=== PATIENT | female | born 1965 | race Caucasian/White ===

== ENCOUNTER → 2017-08-12 | Outpatient (CLI) | payer MEDICAID ==
[2017-08-12 08:41] LABS: Basophils # (A) 0.1 k/uL (0-0.2); Basophils % (A) 1 %; Eosinophils # (A) 0.2 k/uL (0-0.7); Eosinophils % (A) 2 %; HCT 44.2 % (34.0-46.0); HGB 14.1 gm/dL (11.4-16.0); Lymphocytes # (A) 1.8 k/uL (1.0-4.8); Lymphocytes % (A) 20 %; MCH 28.2 pg (25.0-35.0); MCHC 31.9 g/dL (31.0-37.0); MCV 88.4 fL (80.0-100.0); Mean Platelet Volume 7.5; Monocytes # (A) 0.5 k/uL (0-1.0); Monocytes % (A) 6 %; Neutrophils # (A) 6.1 k/uL (1.3-7.7); Neutrophils % (A) 69 %; Platelet Count 257 k/uL (150-450); RBC 4.99 m/uL (3.80-5.40); RDW 14.8 % (11.5-15.5); WBC 8.8 k/uL (3.8-10.6)
[2017-08-12 08:54] LABS: Potassium 4.7 mmol/L (3.5-5.1)
== END | disposition home or self-care (01) ==
LOC: LABPAT 08:02
PROVIDERS: ATTEND Orthopaedic Surgery
DX: Z01.818 Encounter for other preprocedural examination (principal); Z01.812 Encounter for preprocedural laboratory examination; M23.92 Unspecified internal derangement of left knee
CPT/HCPCS: 36415; 80051; 85025; 93005

== ENCOUNTER 2017-08-17 09:29 | Day surgery (SDC) | payer MEDICAID ==
[2017-08-10 23:05] VITALS: BMI 49.4
--- NOTE | 2017-08-16 11:29 | HP ---
HISTORY AND PHYSICAL Surgery is 08/17/2017. Noreen Hebert is a 52-year-old patient seen with progressive right knee pain. We discussed treatment options. She elected to proceed with right knee arthroscopy. Consent regarding the procedure was obtained. PAST MEDICAL HISTORY: Noncontributory. PAST SURGICAL HISTORY: section, cholecystectomy, hysterectomy, tonsillectomy. DAILY MEDICATIONS: Aleve as needed. ALLERGIES: None reported. SOCIAL HISTORY: Patient denies tobacco use. PHYSICAL EVALUATION: Right knee range of motion 0 to 125 degrees. Tenderness, medial joint line. Positive medial Ramirez's. Ligaments stable. Hip rotation without pain. Distal neurovascular exam is intact. Right knee radiographs revealed mild osteoarthritis. An MRI of the right knee revealed chondromalacia of the medial compartment, patella joint effusion and osteoarthritic changes. IMPRESSION: Internal derangement right knee with osteochondral tear versus meniscal tear. PLAN: Right knee arthroscopy with chondroplasty versus partial meniscectomy and debridement. MMODL / IJN: [id number] /
[~2017-08-17 09:29] MED LIST: DEXAMETHASONE SOD PHOSPHATE 10 MG/ML 1 ML VIAL IV ONE; HYDROmorphone 0.5 MG/0.5 ML SYRINGE IVP PRN; LACTATED RINGERS 1,000 ML IV SCH; ONDANSETRON 4 MG/2 ML VIAL IVP ONE
[2017-08-17] MEDS ORDERED: LIDOCAINE 1% 20 ML VIAL (10MG/ML) FOR IV START INTRADERMA ONE (10:31)
[2017-08-17] MEDS ORDERED: MIDAZOLAM 2 MG/2 ML VIAL ONE (10:56)
[2017-08-17] MEDS ORDERED: KETOROLAC 30 MG/ML 1 ML VIAL ONE (10:56)
[2017-08-17] MEDS ORDERED: BUPIVACAINE (PF) 0.25% 30 ML VIAL INTRAARTIC ONE (10:56)
[2017-08-17] MEDS ORDERED: SUCCINYLCHOLINE CHLORIDE 100 MG/5 ML SYR IV ONE (10:56)
[2017-08-17] MEDS ORDERED: LIDOCAINE 1% INJ 10MG/ML (20 ML MDV) ONE (10:56)
[2017-08-17] MEDS ORDERED: PROPOFOL 10 MG/ML 20 ML VIAL IV ONE (10:56)
[2017-08-17] MEDS ORDERED: fentaNYL (PF) 50 MCG/ML 2 ML AMP ONE (10:56)
[2017-08-17] MEDS ORDERED: HYDROmorphone (PF) 1 MG/ML ONE (10:56)
[2017-08-17 11:51] VITALS: RESP 16; TEMP 98
--- NOTE | 2017-08-17 11:54 | P.OP ---
Date of Procedure: 08/17/17 Preoperative Diagnosis: Internal derangement right knee Postoperative Diagnosis: 1. Tear medial and lateral meniscus right knee 2. Grade 4 chondromalacia medial femoral condyle right knee 3. Grade 3 chondromalacia patella right knee 4. Reactive synovitis medial and suprapatellar compartments right knee Procedure(s) Performed: 1. Arthroscopic partial medial and lateral meniscectomy right knee 2. Arthroscopic chondroplasty medial femoral condyle right knee 3. Arthroscopic microfracture medial femoral condyle right knee 4. Arthroscopic chondroplasty patella right knee 5. Arthroscopic partial synovectomy medial and suprapatellar compartments right knee Anesthesia: ERIN, local Surgeon: Bryan Pepper Estimated Blood Loss (ml): 10 Pathology: none sent Condition: stable Disposition: PACU Indications for Procedure: 52-year-old patient seen with progressive right knee pain. After treatment options were discussed, she elected to proceed with arthroscopy. Operative Findings: See description of procedure Description of Procedure: Patient was taken to the operative suite. Patient underwent a general anesthetic by the department of anesthesia. Patient was given preoperative antibiotics. The right lower extremity was placed in a well-padded arthroscopic leg troncoso. The right leg was prepped and draped in the normal sterile orthopedic fashion. A lateral parapatellar and suprapatellar incision was made. Trochars were inserted. Arthroscopy was initiated. Suprapatellar pouch revealed diffuse thick reactive synovitis.. The patellofemoral joint appeared to articulate congruently.. There was grade 3 chondromalacia of the patella with osteochondral tears as well as grade 3 chondromalacia of the femoral sulcus with osteochondral tears. The scope was guided into the medial gutter. No loose bodies or plica were identified. The scope was then guided into the medial compartment. A medial parapatellar incision was made. Trocar inserted followed by probe. There was a complex tear involving the posterior horn of the medial meniscus. There were grade 4 chondromalacia changes of the medial femoral condyle with diffuse osteochondral tearing present. There was reactive synovitis anteriorly. There were grade 2/3 chondromalacia changes of the medial tibial plateau present. No loose bodies. I performed a partial medial meniscectomy down to stable tissue. I performed a chondroplasty of the medial femoral condyle and tibial plateau down to stable tissue. I performed a partial synovectomy. The residual meniscus was probed and found to be stable. There was an area of exposed bone weightbearing surface medial femoral condyle. I performed a microfracture. The peripheral area was debrided with a motorized shaver. The residual area was stable. Scope and probe were then guided into the intercondylar notch. Cruciates were identified, probed and found to be stable. The scope and probe were then guided into lateral compartment. There were superficial tears involving the mid body and posterior horn of the lateral meniscus. There were grade 1 chondromalacia changes of lateral compartment. No loose bodies. I performed a partial lateral meniscectomy down to stable tissue. The residual meniscus was probed and found to be stable. The scope was in guided back into the suprapatellar compartment. I introduced a motorized shaver into the super patellar compartment. I debrided some piecemeal fragments of meniscus. I performed a chondroplasty of the patella down to stable tissue. I performed a partial synovectomy. The residual osteochondral surface of the patella was probed and found to be stable. The shaver was removed. I took one more look around the entire knee, no residual debris. Instruments were now removed from the joint. The joint was infiltrated with .25% Marcaine. Steri-Strips were applied to the portal sites. Sterile dressings were applied. The patient was placed into a TIANNA hose. No tourniquet was utilized. The patient was awakened, transferred to a bed and taken to recovery stable satisfactory condition.
[2017-08-17 14:59] VITALS: BP 140/86; PULSE 81
== END 2017-08-17 15:32 | disposition home or self-care (01) ==
LOC: OR 09:29
PROVIDERS: ATTEND Orthopaedic Surgery
DX: S83.241A Other tear of medial meniscus, current injury, right knee, initial encounter (principal); S83.281A Other tear of lateral meniscus, current injury, right knee, initial encounter; X58.XXXA Exposure to other specified factors, initial encounter; M94.261 Chondromalacia, right knee; M65.861 Other synovitis and tenosynovitis, right lower leg
CPT/HCPCS: 29880; J2250; J1100; J0690; J2405; J2001; J3010; J1885; J1170; J0330; J2704

== ENCOUNTER → 2017-11-01 | Outpatient (CLI) | payer MEDICAID ==
--- NOTE | 2017-11-02 08:30 | MM ---
Reason for exam: screening (asymptomatic). Last mammogram was performed 1 year and 8 months ago. History: Patient is postmenopausal. Physical Findings: A clinical breast exam by your physician is recommended on an annual basis and results should be correlated with mammographic findings. MG 3D Screening Mammo W/Cad Bilateral CC and MLO view(s) were taken. Prior study comparison: March 08, 2016, bilateral MG 3d screening mammo w/cad. September 06, 2014, bilateral MG screening mammo w CAD. There are scattered fibroglandular densities. Stable benign calcifications. There is no discrete abnormality. No significant changes when compared with prior studies. ASSESSMENT: Benign, BI-RAD 2 RECOMMENDATION: Routine screening mammogram of both breasts in 1 year.
== END | disposition home or self-care (01) ==
LOC: RADMAMWWP 07:51
PROVIDERS: ATTEND Family Medicine
DX: Z12.31 Encounter for screening mammogram for malignant neoplasm of breast (principal)
CPT/HCPCS: 77063; 77067

== ENCOUNTER → 2017-12-13 | Outpatient (CLI) | payer MEDICAID ==
--- NOTE | 2017-12-13 18:44 | CT ---
EXAMINATION TYPE: CT sinus wo con DATE OF EXAM: 12/13/2017 COMPARISON: NONE HISTORY: Patient complains of recurrent sinus infections that unresponsive to treatment. CT DLP: 547 mGycm. Automated Exposure Control for Dose Reduction was Utilized. TECHNIQUE: CT scan of the sinuses is performed without contrast, axial images are obtained, coronal r eformatted images are also reviewed. FINDINGS: Orbital margins are intact. There is no evidence of blowout fracture. Maxilla is intact. Zy gomatic arches appear normal. There is fairly normal development and aeration of the paranasal sinuse s. There is bilateral patency of the ostiomeatal complex. I see no bony destructive process. There is no evidence of orbital mass. Visualized temporal bones appear normal. CONCLUSION: Negative CT scan of the paranasal sinuses.
== END | disposition home or self-care (01) ==
LOC: RADCTMAIN 18:07
PROVIDERS: ATTEND Otolaryngology
DX: J32.9 Chronic sinusitis, unspecified (principal)
CPT/HCPCS: 70486

== ENCOUNTER → 2018-04-12 | Outpatient (CLI) | payer MEDICAID ==
[2018-04-12 11:41] LABS: HCT 42.7 % (34.0-46.0); HGB 14.2 gm/dL (11.4-16.0); MCH 28.4 pg (25.0-35.0); MCHC 33.3 g/dL (31.0-37.0); MCV 85.3 fL (80.0-100.0); Mean Platelet Volume 7.2; Platelet Count 272 k/uL (150-450); RDW 13.9 % (11.5-15.5); WBC 8.3 k/uL (3.8-10.6)
[2018-04-12 12:00] LABS: Appearance,Urine Cloudy (Clear); Bacteria,Urine Occasional /hpf; Bilirubin,Urine Negative (Negative); Blood,Urine Negative (Negative); Color,Urine Yellow; Glucose,Urine (UA) Negative (Negative); Ketones,Urine Negative (Negative); Leukocyte Esterase,Urine Negative (Negative); Mucus,Urine Rare /hpf; Nitrite,Urine Negative (Negative); PH, Urine 5.5 (5.0-8.0); Protein,Urine Negative (Negative); Specific Gravity,Urine 1.013 (1.001-1.035); Squamous Epithelial Cell,Urine 2 /hpf (0-4); Urobilinogen,Urine <2.0 mg/dL (<2.0); WBC,Urine 5 /hpf (0-5)
[2018-04-12 12:16] LABS: ALT 51 U/L (9-52); AST 38 U/L (14-36); Albumin 4.2 g/dL (3.5-5.0); Alkaline Phosphatase 62 U/L (38-126); Anion Gap 8 mmol/L; Blood Urea Nitrogen 12 mg/dL (7-17); Calcium 9.8 mg/dL (8.4-10.2); Carbon Dioxide 28 mmol/L (22-30); Chloride 104 mmol/L (98-107); Cholesterol 192 mg/dL (<200); Glucose 105 mg/dL (74-99); HDL Cholesterol 34 mg/dL (40-60); LDL Cholesterol,Calculated 96 mg/dL (0-99); Sodium 140 mmol/L (137-145); Total Bilirubin 0.6 mg/dL (0.2-1.3); Total Protein 7.4 g/dL (6.3-8.2); Triglycerides 311 mg/dL (<150)
== END | disposition home or self-care (01) ==
LOC: LABWHC1 10:33
PROVIDERS: ATTEND Family Medicine
DX: Z00.00 Encounter for general adult medical examination without abnormal findings (principal)
CPT/HCPCS: 36415; 80053; 80061; 81001; 85027

== ENCOUNTER 2019-10-13 19:30 | Emergency (ER) | payer MEDICAID ==
[2019-10-13] MEDS ORDERED: METOCLOPRAMIDE 5 MG/ML 2 ML VIAL IVP STA (19:45)
[2019-10-13] MEDS ORDERED: MECLIZINE 12.5 MG TAB PO STA ×2 (19:45→21:07)
--- NOTE | 2019-10-13 19:49 | ED ---
General Adult HPI - General Source: patient, family, EMS, RN notes reviewed Mode of arrival: EMS Limitations: no limitations <Fish Lainez - Last Filed: 10/13/19 20:51> <Glen Case - Last Filed: 10/13/19 23:30> - General Stated complaint: Vomiting Time Seen by Provider: 10/13/19 19:37 - History of Present Illness Initial comments: Patient is a pleasant 54-year-old female presenting to the emergency department with dizziness. Onset of symptoms was sudden just prior to arrival. Patient was at a restaurant and just starting to eat. Patient suddenly became very dizzy and the room was spinning. Patient did fall and did strike her head. Unclear if patient may have loss consciousness for less than a second. Patient does complain of moderate discomfort on the side of her head where she struck it. Otherwise no headache. No weakness. No speech problems. No paresthesia. No confusion. Patient does have nausea and has vomited several times. No history of similar symptoms previously. (Fish Lainez) - Related Data Previous Rx's Medication Instructions Recorded Hydrocodone/Acetaminophen [[place] 1 each PO Q6HR PRN #20 tab 08/17/17 5-325] Meclizine [Antivert] 25 mg PO TID PRN #15 tab 10/13/19 Ondansetron Odt [Zofran ODT] 4 mg PO Q8HR PRN #10 tab 10/13/19 Allergies Allergy/AdvReac Type Severity Reaction Status Date / Time No Known Allergies Allergy Verified 08/17/17 10:09 Review of Systems ROS Other: All systems not noted in ROS Statement are negative. Constitutional: Denies: fever Eyes: Denies: eye pain ENT: Denies: ear pain Respiratory: Denies: cough Cardiovascular: Denies: chest pain Endocrine: Denies: fatigue Gastrointestinal: Denies: abdominal pain Genitourinary: Denies: dysuria Musculoskeletal: Denies: back pain Skin: Denies: rash Neurological: Reports: as per HPI, vertigo. Denies: weakness, numbness, paresthesias, confusion <Fish Lainez - Last Filed: 10/13/19 20:51> ROS Other: All systems not noted in ROS Statement are negative. <Glen Case - Last Filed: 10/13/19 23:30> ROS Statement: Those systems with pertinent positive or pertinent negative responses have been documented in the HPI. Past Medical History Additional Past Medical History / Comment(s): hx. colon polyps, History of Any Multi-Drug Resistant Organisms: None Reported Past Surgical History: Section, Cholecystectomy, Hysterectomy, Tonsillectomy Additional Past Surgical History / Comment(s): pilinoidal cyst removed Past Anesthesia/Blood Transfusion Reactions: Previous Problems w/ Anesthesia Additional Past Anesthesia/Blood Transfusion Reaction / Comment(s): states "hard to wake up" Smoking Status: Never smoker - Past Family History Father Family Medical History: Cancer Additional Family Medical History / Comment(s): thyroid <Fish Lainez - Last Filed: 10/13/19 20:51> General Exam Limitations: no limitations General appearance: alert, in no apparent distress Head exam: Present: atraumatic, normocephalic Eye exam: Present: normal appearance, PERRL, EOMI. Absent: nystagmus ENT exam: Present: normal oropharynx Neck exam: Present: normal inspection Respiratory exam: Present: normal lung sounds bilaterally Cardiovascular Exam: Present: regular rate, normal rhythm GI/Abdominal exam: Present: soft. Absent: tenderness Extremities exam: Present: normal inspection Neurological exam: Present: alert, oriented X3, CN II-XII intact. Absent: motor sensory deficit Expanded Neurological exam: Present: protecting the airway Patient oriented to: Present: person, place, time Speech: Present: fluid speech Cranial nerves: EOM's Intact: Normal, Facial Sensation: Normal Sensory exam: Upper Extremity Light Touch: Normal, Lower Extremity Light Touch: Normal Motor strength exam: RUE: 5, LUE: 5, RLE: 5, LLE: 5 Eye Response: (4) open spontaneously Motor Response: (6) obeys commands Verbal Response: (5) oriented Psychiatric exam: Present: normal affect, normal mood Skin exam: Present: normal color <Fish Lainez Last Filed: 10/13/19 20:51> Course Vital Signs 10/13/19 10/13/19 19:51 22:41 Temperature 98.3 F Pulse Rate 92 82 Respiratory 19 17 Rate Blood Pressure 155/92 132/87 O2 Sat by Pulse 96 97 Oximetry EKG Findings - EKG Comments: EKG Findings:: Normal sinus rhythm at 89. IN 190. QRS 78. QT 372. QTC 452. Normal axis. Low QRS voltage. Inferior T wave inversion. No acute ST change. <Fish Lainez - Last Filed: 10/13/19 20:51> Medical Decision Making - Lab Data Result diagrams: 10/13/19 20:05 10/13/19 20:05 <Fish Lainez - Last Filed: 10/13/19 20:51> - Lab Data Result diagrams: 10/13/19 20:05 10/13/19 20:05 <Glen Case - Last Filed: 10/13/19 23:30> - Medical Decision Making I receive this patient has a sign out, pending the results of the studies. These have all returned and are normal. I did reassess the patient, and now she is able to be up and walking without symptoms. She does feel like going home. We discussed appropriate further care and follow-up as well as return parameters. (Glen Case) - Lab Data Lab Results 10/13/19 10/13/19 10/13/19 Range/Units 20:05 20:05 20:05 WBC 9.9 (3.8-10.6) k/uL RBC 5.18 (3.80-5.40) m/uL Hgb 14.6 (11.4-16.0) gm/dL Hct 43.7 (34.0-46.0) % MCV 84.4 (80.0-100.0) fL MCH 28.2 (25.0-35.0) pg MCHC 33.4 (31.0-37.0) g/dL RDW 13.4 (11.5-15.5) % Plt Count 315 (150-450) k/uL Neutrophils % 66 % Lymphocytes % 24 % Monocytes % 5 % Eosinophils % 2 % Basophils % 1 % Neutrophils # 6.5 (1.3-7.7) k/uL Lymphocytes # 2.4 (1.0-4.8) k/uL Monocytes # 0.5 (0-1.0) k/uL Eosinophils # 0.2 (0-0.7) k/uL Basophils # 0.1 (0-0.2) k/uL PT 9.7 (9.0-12.0) sec INR 0.9 (<1.2) APTT 25.0 (22.0-30.0) sec Sodium 136 L (137-145) mmol/L Potassium 4.0 (3.5-5.1) mmol/L Chloride 101 (98-107) mmol/L Carbon Dioxide 21 L (22-30) mmol/L Anion Gap 14 mmol/L BUN 14 (7-17) mg/dL Creatinine 0.78 (0.52-1.04) mg/dL Est GFR (CKD-EPI)AfAm >90 (>60 ml/min/1.73 sqM) Est GFR (CKD-EPI)NonAf 88 (>60 ml/min/1.73 sqM) Glucose 141 H (74-99) mg/dL Calcium 9.8 (8.4-10.2) mg/dL Total Bilirubin 0.4 (0.2-1.3) mg/dL AST 27 (14-36) U/L ALT 18 (4-34) U/L Alkaline Phosphatase 72 (38-126) U/L Creatine Kinase 126 (30-135) U/L Troponin I (0.000-0.034) ng/mL Total Protein 7.9 (6.3-8.2) g/dL Albumin 4.6 (3.5-5.0) g/dL 10/13/19 Range/Units 20:05 WBC (3.8-10.6) k/uL RBC (3.80-5.40) m/uL Hgb (11.4-16.0) gm/dL Hct (34.0-46.0) % MCV (80.0-100.0) fL MCH (25.0-35.0) pg MCHC (31.0-37.0) g/dL RDW (11.5-15.5) % Plt Count (150-450) k/uL Neutrophils % % Lymphocytes % % Monocytes % % Eosinophils % % Basophils % % Neutrophils # (1.3-7.7) k/uL Lymphocytes # (1.0-4.8) k/uL Monocytes # (0-1.0) k/uL Eosinophils # (0-0.7) k/uL Basophils # (0-0.2) k/uL PT (9.0-12.0) sec INR (<1.2) APTT (22.0-30.0) sec Sodium (137-145) mmol/L Potassium (3.5-5.1) mmol/L Chloride (98-107) mmol/L Carbon Dioxide (22-30) mmol/L Anion Gap mmol/L BUN (7-17) mg/dL Creatinine (0.52-1.04) mg/dL Est GFR (CKD-EPI)AfAm (>60 ml/min/1.73 sqM) Est GFR (CKD-EPI)NonAf (>60 ml/min/1.73 sqM) Glucose (74-99) mg/dL Calcium (8.4-10.2) mg/dL Total Bilirubin (0.2-1.3) mg/dL AST (14-36) U/L ALT (4-34) U/L Alkaline Phosphatase (38-126) U/L Creatine Kinase (30-135) U/L Troponin I <0.012 (0.000-0.034) ng/mL Total Protein (6.3-8.2) g/dL Albumin (3.5-5.0) g/dL Disposition <Fish Lainez - Last Filed: 10/13/19 20:51> Is patient prescribed a controlled substance at d/c from ED?: No <Glen Case - Last Filed: 10/13/19 23:30> Clinical Impression: Vertigo Disposition: HOME SELF-CARE Condition: Good Instructions (If sedation given, give patient instructions): Vertigo (ED) Prescriptions: Meclizine [Antivert] 25 mg PO TID PRN #15 tab PRN Reason: Vertigo Ondansetron Odt [Zofran ODT] 4 mg PO Q8HR PRN #10 tab PRN Reason: Nausea Referrals: Constantin Darby MD [Primary Care Provider] - 1-2 days
[2019-10-13 19:55] VITALS: TEMP 98.3
[2019-10-13 20:21] LABS: Basophils # (A) 0.1 k/uL (0-0.2); Basophils % (A) 1 %; Eosinophils # (A) 0.2 k/uL (0-0.7); Eosinophils % (A) 2 %; HCT 43.7 % (34.0-46.0); HGB 14.6 gm/dL (11.4-16.0); Lymphocytes # (A) 2.4 k/uL (1.0-4.8); Lymphocytes % (A) 24 %; MCH 28.2 pg (25.0-35.0); MCHC 33.4 g/dL (31.0-37.0); MCV 84.4 fL (80.0-100.0); Mean Platelet Volume 7.6; Monocytes # (A) 0.5 k/uL (0-1.0); Monocytes % (A) 5 %; Neutrophils # (A) 6.5 k/uL (1.3-7.7); Neutrophils % (A) 66 %; Platelet Count 315 k/uL (150-450); RBC 5.18 m/uL (3.80-5.40); RDW 13.4 % (11.5-15.5); WBC 9.9 k/uL (3.8-10.6)
[2019-10-13 20:30] LABS: INR 0.9 (<1.2); Prothrombin Time 9.7 sec (9.0-12.0)
[2019-10-13 20:32] LABS: ALT 18 U/L (4-34); AST 27 U/L (14-36); African American GFR (CKD) >90 (>60 ml/min/1.73 sqM); Albumin 4.6 g/dL (3.5-5.0); Alkaline Phosphatase 72 U/L (38-126); Anion Gap 14 mmol/L; Blood Urea Nitrogen 14 mg/dL (7-17); Calcium 9.8 mg/dL (8.4-10.2); Carbon Dioxide 21 mmol/L (22-30); Chloride 101 mmol/L (98-107); Creatine Kinase 126 U/L (30-135); Glucose 141 mg/dL (74-99); Non-African American GFR(CKD) 88 (>60 ml/min/1.73 sqM); Sodium 136 mmol/L (137-145); Total Bilirubin 0.4 mg/dL (0.2-1.3); Total Protein 7.9 g/dL (6.3-8.2)
--- NOTE | 2019-10-13 21:27 | XR ---
EXAMINATION TYPE: XR chest 2V DATE OF EXAM: 10/13/2019 COMPARISON: NONE HISTORY: Altered mental status TECHNIQUE: FINDINGS: Heart and mediastinum are within normal limits. Lungs are clear. Diaphragm is normal. Bony thorax is intact. There are chest leads. IMPRESSION: No active cardiopulmonary disease.
--- NOTE | 2019-10-13 21:46 | CT ---
EXAMINATION TYPE: CT brain wo con DATE OF EXAM: 10/13/2019 COMPARISON: 02/19/2015 HISTORY: Acute onset, nausea, vomiting, dizziness. CT DLP: 1105.8 mGycm Automated exposure control for dose reduction was used. Multiple axial sections were obtained of the brain without contrast. Ventricles and sulci appear normal. There is no mass effect nor midline shift. There is no sign of in tracranial hemorrhage. The calvarium is intact. IMPRESSION: Negative CT scan of the brain. No change.
--- NOTE | 2019-10-13 22:01 | CT ---
EXAMINATION TYPE: CT angio head neck DATE OF EXAM: 10/13/2019 COMPARISON: HISTORY: Acute onset, nausea, vomiting, dizziness. CT DLP: 1088.8 mGycm Automated exposure control for dose reduction was used. CONTRAST: Performed with IV Contrast, patient injected with 65 mL of Isovue 370. There are 3-D post processed images. There is normal branching pattern of the great vessels on the aortic arch. There is bilateral arteria l flow in the subclavian arteries. There is arterial flow in both vertebral arteries. There is arteri al flow in the common internal and external carotid arteries bilaterally. There is wide patency of th e carotid artery bifurcations. There is no evidence of carotid or vertebral artery aneurysm or dissec tion. There is arterial flow in the anterior middle and posterior cerebral arteries. There is arterial flow in the vertebrobasilar artery system. The basilar artery fills mostly from the left side. There is n o mass effect. There is no evidence of intracranial aneurysm or neovascularity. There is normal contr ast opacification of the venous sinuses. There is no evidence of intracranial arterial stenosis. IMPRESSION: Negative CT angiogram of the neck. Negative CT angiogram of the brain.
[2019-10-13 22:42] VITALS: BP 132/87; PULSE 82; RESP 17
== END 2019-10-13 23:25 | disposition home or self-care (01) ==
LOC: EC 19:30
DX: R42 Dizziness and giddiness (principal); R11.2 Nausea with vomiting, unspecified; Z87.19 Personal history of other diseases of the digestive system; Z90.49 Acquired absence of other specified parts of digestive tract; Z98.890 Other specified postprocedural states; W19.XXXA Unspecified fall, initial encounter
CPT/HCPCS: 36415; 93005; 80053; 82550; 84484; 85025; 85610; 85730; 71046; 70496; 70450; 70498; 96374; 99285; J2765; Q9967

== ENCOUNTER → 2019-11-22 | Outpatient (CLI) | payer MEDICAID ==
[2019-11-22 11:02] LABS: HGB 14.3 gm/dL (11.4-16.0); MCH 28.9 pg (25.0-35.0); MCHC 33.9 g/dL (31.0-37.0); MCV 85.3 fL (80.0-100.0); Mean Platelet Volume 7.5; Platelet Count 268 k/uL (150-450); RBC 4.92 m/uL (3.80-5.40); RDW 13.9 % (11.5-15.5); WBC 9.5 k/uL (3.8-10.6)
[2019-11-22 16:15] LABS: African American GFR (CKD) 98.2 (60.0-200.0); Albumin 4.4 g/dL (3.80-4.90); Albumin/Globulin Ratio 1.91 (1.60-3.17); Anion Gap 9.4 mmol/L (4.00-12.00); Calcium 9.6 mg/dL (8.7-10.3); Carbon Dioxide 25.6 mmol/L (21.6-31.8); Chol/HDL Ratio 4.74; Globulin 2.3 g/dL (1.6-3.3); LDL Cholesterol,Calculated 97.2 mg/dL (0.0-131.0); Non-African American GFR(CKD) 84.8 (60.0-200.0); Potassium 4.6 mmol/L (3.5-5.5); Total Bilirubin 0.7 mg/dL (0.2-1.2); Total Protein 6.7 g/dL (6.2-8.2); VLDL Calculation 63.8 mg/dL (5.00-40.00)
== END | disposition home or self-care (01) ==
LOC: LABWHC1 10:32
PROVIDERS: ATTEND Family Medicine
DX: Z00.01 Encounter for general adult medical examination with abnormal findings (principal)
CPT/HCPCS: 36415; 80053; 80061; 85027

== ENCOUNTER → 2020-02-20 | Outpatient (CLI) | payer MEDICAID | END | disposition home or self-care (01) | LOC: NEUROMAIN 07:57 | PROVIDERS: ATTEND Psychiatry & Neurology Neurology | DX: R42 Dizziness and giddiness (principal) | CPT/HCPCS: 92537; 92540 ==

== ENCOUNTER → 2020-05-26 | Outpatient (CLI) | payer MEDICAID ==
[2020-05-26 15:44] LABS: Chol/HDL Ratio 5.33
== END | disposition home or self-care (01) ==
LOC: LABWHC1 08:54
PROVIDERS: ATTEND Family Medicine
DX: E88.81 Metabolic syndrome and other insulin resistance (principal)
CPT/HCPCS: 36415; 80061

== ENCOUNTER → 2020-08-07 | Outpatient (CLI) | payer MEDICAID ==
[2020-08-07 17:45] LABS: African American GFR (CKD) 97.6 (60.0-200.0); Albumin 4.6 g/dL (3.80-4.90); Anion Gap 8.5 mmol/L (4.00-12.00); Calcium 9.9 mg/dL (8.7-10.3); Carbon Dioxide 28.5 mmol/L (21.6-31.8); Chol/HDL Ratio 5.49; Globulin 2.3 g/dL (1.6-3.3); Non-African American GFR(CKD) 84.2 (60.0-200.0); Potassium 4.6 mmol/L (3.5-5.5); Total Bilirubin 0.3 mg/dL (0.3-1.2); Total Protein 6.9 g/dL (6.2-8.2)
== END | disposition home or self-care (01) ==
LOC: LABWHC1 08:02
PROVIDERS: ATTEND Family Medicine
DX: E78.5 Hyperlipidemia, unspecified (principal); R03.0 Elevated blood-pressure reading, without diagnosis of hypertension
CPT/HCPCS: 36415; 80053; 80061; 83721

== ENCOUNTER 2020-10-24 20:09 | Emergency (ER) | payer MEDICAID ==
[2020-10-24] MEDS ORDERED: FAMOTIDINE 20 MG/2 ML VIAL IV STA (20:53)
[2020-10-24] MEDS ORDERED: methylPREDNISolone SOD SUCCI 125 MG/2 ML VIAL IV STA (20:53)
[2020-10-24] MEDS ORDERED: diphenhydrAMINE 50 MG/ML 1 ML VIAL IVP STA (20:53)
[2020-10-24] MEDS ORDERED: ONDANSETRON 4 MG/2 ML VIAL IVP STA ×2 (21:12→21:14)
[2020-10-24 21:54] VITALS: RESP 18
[2020-10-24 21:56] VITALS: BP 163/86; PULSE 89; TEMP 98.7
--- NOTE | 2020-10-24 22:09 | ED ---
General Adult HPI - General Source: patient, RN notes reviewed Mode of arrival: ambulatory Limitations: no limitations <Quincy Herrera - Last Filed: 10/24/20 22:02> <Kelsie Schafer - Last Filed: 10/26/20 12:08> - General Chief complaint: Allergic Reaction Stated complaint: Allergic Reaction Time Seen by Provider: 10/24/20 20:31 - History of Present Illness Initial comments: 55-year-old female with a past medical history of colon polyps presents to the emergency room for a chief complaint of right-sided facial swelling. Patient reports that this started about 10 minutes after eating salmon. States she that she was having an ALLERGIC reaction. Patient has never had an ALLERGIC reaction to salmon before. No swelling of the lips tongue or throat today. No shortness of breath. Patient denies pain. Denies any swelling on the left side of the face.Patient has no other complaints at this time including shortness of breath, chest pain, abdominal pain, nausea or vomiting, headache, or visual changes. (Quincy Herrera) - Related Data Previous Rx's Medication Instructions Recorded Hydrocodone/Acetaminophen [[place] 1 each PO Q6HR PRN #20 tab 08/17/17 5-325] Meclizine [Antivert] 25 mg PO TID PRN #15 tab 10/13/19 Ondansetron Odt [Zofran ODT] 4 mg PO Q8HR PRN #10 tab 10/13/19 Allergies Allergy/AdvReac Type Severity Reaction Status Date / Time No Known Allergies Allergy Verified 10/24/20 20:21 Review of Systems ROS Other: All systems not noted in ROS Statement are negative. <Quincy Herrera - Last Filed: 10/24/20 22:02> ROS Other: All systems not noted in ROS Statement are negative. <Kelsie Schafer - Last Filed: 10/26/20 12:08> ROS Statement: Those systems with pertinent positive or pertinent negative responses have been documented in the HPI. Past Medical History Additional Past Medical History / Comment(s): hx. colon polyps, History of Any Multi-Drug Resistant Organisms: None Reported Past Surgical History: Section, Cholecystectomy, Hysterectomy, Tonsil lectomy Additional Past Surgical History / Comment(s): pilinoidal cyst removed Past Anesthesia/Blood Transfusion Reactions: Previous Problems w/ Anesthesia Additional Past Anesthesia/Blood Transfusion Reaction / Comment(s): states "hard to wake up" Past Psychological History: No Psychological Hx Reported Past Alcohol Use History: None Reported Past Drug Use History: None Reported - Past Family History Father Family Medical History: Cancer Additional Family Medical History / Comment(s): thyroid <Quincy Herrera P - Last Filed: 10/24/20 22:02> General Exam Limitations: no limitations General appearance: alert, in no apparent distress Head exam: Present: atraumatic, normocephalic, normal inspection Eye exam: Present: normal appearance, PERRL, EOMI. Absent: scleral icterus, conjunctival injection, periorbital swelling ENT exam: Present: normal exam, normal oropharynx (No swelling of the lips tongue or throat.), mucous membranes moist, TM's normal bilaterally, normal external ear exam, other (She does have mild edema with minimal tenderness near the right parotid gland. No erythema or increased warmth. No tenderness or edema under the tongue) Neck exam: Present: normal inspection, full ROM. Absent: tenderness, meningismus, lymphadenopathy Respiratory exam: Present: normal lung sounds bilaterally. Absent: respiratory distress, wheezes, rales, rhonchi, stridor Cardiovascular Exam: Present: regular rate, normal rhythm, normal heart sounds. Absent: systolic murmur, diastolic murmur, rubs, gallop, clicks <Quincy Herrera P - Last Filed: 10/24/20 22:02> Course Vital Signs 10/24/20 10/24/20 10/24/20 20:15 20:32 21:13 Temperature 98.0 F Pulse Rate 110 H 114 H Respiratory 18 16 18 Rate Blood Pressure 162/98 174/99 O2 Sat by Pulse 99 95 Oximetry 10/24/20 21:54 Temperature 98.7 F Pulse Rate 89 Respiratory 18 Rate Blood Pressure 163/86 O2 Sat by Pulse 95 Oximetry Medical Decision Making <Quincy Herrera P - Last Filed: 10/24/20 22:02> <Kelsie Schafer - Last Filed: 10/26/20 12:08> - Medical Decision Making Patient initially presents tachycardic but states she is very anxious. This did improve throughout her stay. I did initially treat patient as an ALLERGIC reaction. Patient did not have any swelling of the lips or throat, only to the right side of the face near her parotid gland. She is mildly tender in this area. Differential also includes a salivary gland stone given tenderness and swelling unilaterally. Recommended sour candies. Recommended she follow up with her doctor. She will return here for any worsening symptoms that are discussed with her including signs of infection or worsening pain. (Quincy Herrera) I was available for consultation in the emergency department. The history and physical exam were done by the midlevel provider. I was consulted for this patients care. I reviewed the case with the midlevel provider and based on their presentation of the patient, I agree with the assessment, medical decision making and plan of care as documented. Chart was dictated using [employer] dictation software. Attempts were made to correct any dictation errors however some typographical errors may persist. Patient was seen during a national state of emergency due to the Covid-19 pandemic. (Kelsie Schafer) Disposition Is patient prescribed a controlled substance at d/c from ED?: No Time of Disposition: 22:08 <Quincy Herrera - Last Filed: 10/24/20 22:02> <Kelsie Schafer - Last Filed: 10/26/20 12:08> Clinical Impression: Edema of face Narrative: possible allergic reaction vs parotid gland stone (Quincy Herrera) Disposition: HOME SELF-CARE Condition: Good Instructions (If sedation given, give patient instructions): Parotid Duct Obstruction (ED), General Allergic Reaction (ED) Additional Instructions: Please try sour candies. Try Motrin and Tylenol for pain and inflammation. Drink plenty of fluids. Follow-up with your doctor. If you have worsening symptoms such as worsening swelling, signs of infection such as redness or increased warmth or fever, or any other concerning symptoms return to the emergency room. Referrals: Constantin Darby MD [Primary Care Provider] - 1-2 days
== END 2020-10-24 22:31 | disposition home or self-care (01) ==
LOC: EC 20:09
DX: R60.0 Localized edema (principal)
CPT/HCPCS: 99283; 96374; 96375; J1200; J2930; J2405

== ENCOUNTER → 2020-12-22 | Outpatient (CLI) | payer MEDICAID ==
[2020-12-22 16:14] LABS: LDL Cholesterol,Calculated 102.6 mg/dL (0.0-131.0); VLDL Calculation 67.4 mg/dL (5.00-40.00)
[2020-12-22 17:34] LABS: Hemoglobin A1C 5.5 % (4.0-6.0)
== END | disposition home or self-care (01) ==
LOC: LABWHC1 07:34
PROVIDERS: ATTEND Family Medicine
DX: E78.1 Pure hyperglyceridemia (principal); R73.03 Prediabetes
CPT/HCPCS: 36415; 80061; 83036

== ENCOUNTER 2020-12-24 09:08 | Day surgery (SDC) | payer MEDICAID ==
[2020-12-19 16:14] VITALS: BMI 47.7
[~2020-12-24 09:08] MED LIST changes: -DEXAMETHASONE SOD PHOSPHATE 10 MG/ML 1 ML VIAL IV ONE; -HYDROmorphone 0.5 MG/0.5 ML SYRINGE IVP PRN; -ONDANSETRON 4 MG/2 ML VIAL IVP ONE
[2020-12-24 09:32] VITALS: TEMP 97.3
[2020-12-24] MEDS ORDERED: PROPOFOL 10 MG/ML 20 ML VIAL IV ONE (10:04)
[2020-12-24 10:26] VITALS: RESP 16
--- NOTE | 2020-12-24 10:26 | P.PCN ---
Date of Procedure: 12/24/20 Procedure(s) Performed: BRIEF HISTORY: Patient is a 55-year-old pleasant white female scheduled for an elective colonoscopy as a part of evaluation of prior history of colon polyps. Last colonoscopy was 5 years ago. PROCEDURE PERFORMED: Colonoscopy. PREOPERATIVE DIAGNOSIS: History of colon polyps. IV sedation per Anesthesia. PROCEDURE: After informed consent was obtained, the patient, was brought into the endoscopy unit. IV sedation was administered by Anesthesia under continuous monitoring. Digital rectal examination was normal. Initially the Olympus CF-160 flexible video colonoscope was then inserted in the rectum, gradually advanced into the cecum without any difficulty. Careful examination was performed as the scope was gradually being withdrawn. Ileocecal valve and the appendiceal orifice were visualized and appeared normal. Prep was excellent. Mucosa of the cecum, ascending colon, transverse colon, descending colon, sigmoid colon, and rectum appeared normal. Scattered sigmoid diverticulosis. Retroflexion was performed in the rectum and no lesions were seen. The patient tolerated the procedure well. IMPRESSION: Normal-appearing colon from rectum to cecum with no evidence of colorectal neoplasia . Scattered sigmoid diverticulosis. RECOMMENDATIONS: Findings of this examination were discussed with the patient as well as a family. She was advised to have a repeat screening colonoscopy in 5 years because of the prior history of colon polyps.
[2020-12-24 10:46] VITALS: BP 133/78; PULSE 63
== END 2020-12-24 11:12 | disposition home or self-care (01) ==
LOC: ORWHC2ENDO 09:08
PROVIDERS: ATTEND Internal Medicine Gastroenterology
DX: Z12.11 Encounter for screening for malignant neoplasm of colon (principal); Z86.010 Personal history of colon polyps; Z79.82 Long term (current) use of aspirin
CPT/HCPCS: J2704; G0105; 45378

== ENCOUNTER → 2021-01-26 | Outpatient (CLI) | payer MEDICAID ==
--- NOTE | 2021-01-26 15:52 | XR ---
EXAMINATION TYPE: XR chest 2V DATE OF EXAM: 01/26/2021 COMPARISON: 10/13/2019 HISTORY: Persistent cough TECHNIQUE: Frontal and lateral views of the chest are obtained. FINDINGS: There is no focal air space opacity, pleural effusion, or pneumothorax seen. The cardiac silhouette size is within normal limits. The osseous structures are intact. IMPRESSION: No acute cardiopulmonary process.
== END | disposition home or self-care (01) ==
LOC: RADXRMAIN 15:29
PROVIDERS: ATTEND Physician Assistant
DX: R05 Cough (principal)
CPT/HCPCS: 71046

== ENCOUNTER → 2021-03-27 | Outpatient (CLI) | payer MEDICAID ==
--- NOTE | 2021-03-31 08:15 | MM ---
Reason for exam: screening (asymptomatic). Last mammogram was performed 3 years and 5 months ago. History: Patient is postmenopausal. Took hormonal contraceptives for 2 years. Physical Findings: A clinical breast exam by your physician is recommended on an annual basis and results should be correlated with mammographic findings. MG 3D Screening Mammo W/Cad Bilateral CC and MLO view(s) were taken. Prior study comparison: November 01, 2017, bilateral MG 3d screening mammo w/cad. March 08, 2016, bilateral MG 3d screening mammo w/cad. There are scattered fibroglandular densities. Anterior superior right MLO asymmetric density does not persist on 3D images. No significant changes when compared with prior studies. ASSESSMENT: Benign, BI-RAD 2 RECOMMENDATION: Routine screening mammogram of both breasts in 1 year.
== END | disposition home or self-care (01) ==
LOC: RADMAMWWP 13:23
PROVIDERS: ATTEND Family Medicine
DX: Z12.31 Encounter for screening mammogram for malignant neoplasm of breast (principal)
CPT/HCPCS: 77063; 77067

== ENCOUNTER → 2022-02-22 | Outpatient (CLI) | payer MEDICAID ==
[2022-02-22 19:20] LABS: ALT 15 U/L (8-44); AST 18 U/L (13-35); African American GFR (CKD) 102.3 (60.0-200.0); Albumin 4.5 g/dL (3.8-4.9); Albumin/Globulin Ratio 1.68 (1.60-3.17); Alkaline Phosphatase 63 U/L (41-126); BUN/Creat Ratio 11.75 Ratio (12.00-20.00); Calcium 9.9 mg/dL (8.7-10.3); Carbon Dioxide 25.7 mmol/L (20.0-27.5); Chloride 102 mmol/L (96-109); Chol/HDL Ratio 6.06 Ratio; Globulin 2.7 g/dL (1.6-3.3); Glucose 88 mg/dL (70-110); LDL Cholesterol,Calculated 107.7 mg/dL (0.0-131.0); Non-African American GFR(CKD) 88.2 (60.0-200.0); Potassium 4.7 mmol/L (3.5-5.5); Sodium 139 mmol/L (135-145); Total Protein 7.1 g/dL (6.2-8.2)
== END | disposition home or self-care (01) ==
LOC: LABWHC1 12:27
PROVIDERS: ATTEND Family Medicine
DX: E88.81 Metabolic syndrome and other insulin resistance (principal); R03.0 Elevated blood-pressure reading, without diagnosis of hypertension
CPT/HCPCS: 36415; 80053; 80061; 83036

== ENCOUNTER → 2023-10-25 | Outpatient (CLI) | payer MEDICAID ==
--- NOTE | 2023-10-27 13:42 | MM ---
Reason for Exam: Screening (asymptomatic). Last mammogram was performed 2 year(s) and 7 month(s) ago. Patient History: Menarche at age 14. First Full-Term at age 26. Left ovary removed at age 48. Right ovary removed at age 48. Hysterectomy at age 48. Postmenopausal. Patient used Hormonal Contraceptives for 2 years. Risk Values: Maria Eugenia 5 year model risk: 1.1%. NCI Lifetime model risk: 7.2%. Prior Study Comparison: 03/08/2016 Bilateral Screening Mammogram, [facility]. 11/01/2017 Bilateral Screening Mammogram, [facility]. 03/27/2021 Bilateral Screening Mammogram, [facility]. Tissue Density: There are scattered areas of fibroglandular density. Findings: Analyzed By CAD. There is no suspicious group of microcalcifications or new suspicious mass in either breast. Overall Assessment: Benign, BI-RAD 2 Management: Screening Mammogram of both breasts in 1 year. . Patient should continue monthly self-breast exams. A clinical breast exam by your physician is recommended on an annual basis. This exam should not preclude additional follow-up of suspicious palpable abnormalities. Note on Maria Eugenia scores and lifetime risk: 1. A Maria Eugenia score greater than 3% is considered moderate risk. If this is the case, consider specialist referral to assess eligibility for a risk reducing agent. 2. If overall lifetime risk for the development of breast cancer is 20% or higher, the patient may qualify for future screening with alternating mammogram and breast MRI. Electronically signed and approved by: Eliezer Baeza M.D. Radiologis
== END | disposition home or self-care (01) ==
LOC: RADMAMWWP 06:54
PROVIDERS: ATTEND Family Medicine
DX: Z12.31 Encounter for screening mammogram for malignant neoplasm of breast (principal); Z78.0 Asymptomatic menopausal state
CPT/HCPCS: 77063; 77067

== ENCOUNTER → 2024-01-19 | Outpatient (CLI) | payer MEDICAID ==
[2024-01-19 15:41] LABS: HCT 42.7 % (37.2-46.3); HGB 13.5 g/dL (12.0-15.0); MCH 27.5 pg (27.0-32.0); MCHC 31.6 g/dL (32.0-37.0); Mean Platelet Volume 10.2 FL (9.5-12.2); NRBC Per 100 WBC 0 X 10*3/uL (0.00-0.01); Platelet Count 294 X 10*3/uL (140-440); RBC 4.91 X 10*6/uL (4.10-5.20); RDW 13.5 % (11.5-14.5); WBC 8.21 X 10*3/uL (4.50-10.00)
[2024-01-19 15:52] LABS: ALT 14 U/L (8-44); AST 22 U/L (13-35); Albumin 4.3 g/dL (3.8-4.9); Albumin/Globulin Ratio 1.59 Ratio (1.60-3.17); Alkaline Phosphatase 66 U/L (41-126); BUN/Creat Ratio 17.25 Ratio (12.00-20.00); Blood Urea Nitrogen 13.8 mg/dL (9.0-27.0); Calcium 10.1 mg/dL (8.7-10.3); Carbon Dioxide 24.8 mmol/L (21.6-31.8); Chloride 101 mmol/L (96-109); Chol/HDL Ratio 5.16 Ratio; Globulin 2.7 g/dL (1.6-3.3); Glucose 99 mg/dL (70-110); LDL Cholesterol,Calculated 116.7 mg/dL (0.0-131.0); Potassium 5.2 mmol/L (3.5-5.5); Sodium 139 mmol/L (135-145); Total Bilirubin 0.4 mg/dL (0.3-1.2)
== END | disposition home or self-care (01) ==
LOC: LABWHC1 09:19
PROVIDERS: ATTEND Family Medicine
DX: Z00.01 Encounter for general adult medical examination with abnormal findings (principal)
CPT/HCPCS: 36415; 80053; 80061; 85027

== ENCOUNTER → 2024-10-29 | Outpatient (CLI) | payer MEDICAID ==
--- NOTE | 2024-10-29 10:12 | MM ---
Reason for Exam: Screening (asymptomatic). Last screening mammogram was performed 12 month(s) ago. Patient History: Menarche at age 14. First Full-Term at age 26. Left ovary removed at age 48. Right ovary removed at age 48. Hysterectomy at age 48. Postmenopausal. Patient used Hormonal Contraceptives for 2 years. Risk Values: Maria Eugenia 5 year model risk: 1.1%. NCI Lifetime model risk: 7.1%. Prior Study Comparison: 11/01/2017 Bilateral Screening Mammogram, [facility]. 03/27/2021 Bilateral Screening Mammogram, [facility]. 10/25/2023 Bilateral MG 3D screening mammo w/cad, [facility]. Tissue Density: There are scattered areas of fibroglandular density. Findings: Analyzed By CAD. There is no suspicious group of microcalcifications or new suspicious mass in either breast. Benign-appearing calcified lesions. Overall Assessment: Benign, BI-RAD 2 Management: Screening Mammogram of both breasts in 1 year. . Patient should continue monthly self-breast exams. A clinical breast exam by your physician is recommended on an annual basis. This exam should not preclude additional follow-up of suspicious palpable abnormalities. Note on Maria Eugenia scores and lifetime risk: 1. A Maria Eugenia score greater than 3% is considered moderate risk. If this is the case, consider specialist referral to assess eligibility for a risk reducing agent. 2. If overall lifetime risk for the development of breast cancer is 20% or higher, the patient may qualify for future screening with alternating mammogram and breast MRI. [facility], , 10/29/2024 10:09 AM. Electronically signed and approved by: Eliezer Baeza M.D. Radiologis
== END | disposition home or self-care (01) ==
LOC: RADMAMWWP 08:57
PROVIDERS: ATTEND Family Medicine
DX: Z12.31 Encounter for screening mammogram for malignant neoplasm of breast (principal); R92.323 Mammographic fibroglandular density, bilateral breasts; Z78.0 Asymptomatic menopausal state; Z92.0 Personal history of contraception
CPT/HCPCS: 77063; 77067